=== PATIENT | male | born 1985 | race Caucasian/White ===

== ENCOUNTER 2017-12-11 08:08 | Emergency (ER) | payer SELFPAY ==
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
== END 2017-12-11 09:23 | disposition home or self-care (01) ==
LOC: ERS 08:08
DX: S50.01XA Contusion of right elbow, initial encounter (principal); F17.290 Nicotine dependence, other tobacco product, uncomplicated; W22.8XXA Striking against or struck by other objects, initial encounter

== ENCOUNTER 2018-01-15 01:44 | Emergency (ER) | payer SELFPAY ==
[2018-01-15 03:09] LABS: #Basophils 0.1 thou/uL (0.0-0.2); #Eosinphils 0.4 thou/uL (0.0-0.7); #Lymphocytes 2.1 thou/uL (1.20-3.40); #Monocytes 1.1 thou/uL (0.11-0.59); #Neutrophils 10.1 thou/uL (1.40-6.50); %Basophils 0.4 % (0.0-1.0); %Eosinophils 2.9 % (0.0-10.0); %Lymphocytes 15.5 % (21.0-51.0); %Monocytes 8.2 % (0.0-10.0); %Neutrophils 73.1 % (42.0-75.0); Hemoglobin 14.7 g/dL (14.0-18.0); Mean Corpuscular HGB CONC 34.2 g/dL (32.0-36.0); Mean Corpuscular Hemoglobin 31.1 pg (27.0-31.0); Mean Platelet Volume 7.6 fL (7.4-10.4); Platelet Count 356 thou/uL (130-400); RBC Distribution Width 12.2 % (11.5-14.5); Red Blood Cell (RBC) Count 4.71 mill/uL (4.70-6.10); White Blood Cell (WBC) Count 13.8 thou/uL (4.8-10.8)
[2018-01-15 03:23] LABS: ALT (SGPT) 18 U/L (8-55); AST (SGOT) 21 U/L (5-34); Albumin 4.9 g/dL (3.5-5.0); Alcohol 101 mg/dL (Less than 10); Alkaline Phosphatase 59 U/L (40-150); Anion Gap 14 mmol/L (10-20); BUN (Urea Nitrogen) 20 mg/dL (8.9-20.6); Bilirubin, Total 0.2 mg/dL (0.2-1.2); Calc. Creatinine Clearance 0 mL/min (70-130); Calcium 9.6 mg/dL (7.8-10.44); Carbon Dioxide 24 mmol/L (22-29); Chloride 104 mmol/L (98-107); Estimated GFR-MDRD 81; Globulin 3.1 g/dL (2.4-3.5); Glucose 126 mg/dL (70-105); Potassium 3.7 mmol/L (3.5-5.1); Sodium 138 mmol/L (136-145)
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
[2018-01-15] MEDS ORDERED: ISOVUE-370 76%-LOCM 1 ML ONE (14:35)
== END 2018-01-15 03:32 | disposition home or self-care (01) ==
LOC: ERS 01:44
DX: S40.021A Contusion of right upper arm, initial encounter; F10.129 Alcohol abuse with intoxication, unspecified; F17.290 Nicotine dependence, other tobacco product, uncomplicated; V86.69XA Passenger of other special all-terrain or other off-road motor vehicle injured in nontraffic accident, initial encounter; S40.211A Abrasion of right shoulder, initial encounter; S01.01XA Laceration without foreign body of scalp, initial encounter
CPT/HCPCS: 12001; 70450; 71045; 71260; 72125; 72170; 74177; 80053; 80307; 85025

== ENCOUNTER 2018-06-11 12:39 | Emergency (ER) | payer SELFPAY ==
[~2018-06-11 12:39] MED LIST: ISOVUE-370 76%-LOCM 1 ML ONE
[2018-06-11 12:55] LABS: #Basophils 0.1 thou/uL (0.0-0.2); #Eosinphils 0.4 thou/uL (0.0-0.7); #Lymphocytes 3.7 thou/uL (1.20-3.40); #Monocytes 0.7 thou/uL (0.11-0.59); #Neutrophils 4.7 thou/uL (1.40-6.50); %Basophils 0.7 % (0.0-1.0); %Eosinophils 4.6 % (0.0-10.0); %Lymphocytes 38.3 % (21.0-51.0); %Monocytes 7.2 % (0.0-10.0); %Neutrophils 49.2 % (42.0-75.0); Hemoglobin 14.5 g/dL (14.0-18.0); Mean Corpuscular HGB CONC 34.1 g/dL (32.0-36.0); Mean Corpuscular Volume 90.7 fL (78.0-98.0); Mean Platelet Volume 6.6 fL (7.4-10.4); Platelet Count 341 thou/uL (130-400); RBC Distribution Width 11.9 % (11.5-14.5); Red Blood Cell (RBC) Count 4.67 mill/uL (4.70-6.10); White Blood Cell (WBC) Count 9.6 thou/uL (4.8-10.8)
[2018-06-11 13:02] LABS: PTT 25.7 SEC (22.9-36.1); Prothrombin Time 13.5 SEC (12.0-14.7)
[2018-06-11 13:09] LABS: ALT (SGPT) 24 U/L (8-55); AST (SGOT) 23 U/L (5-34); Albumin 4.9 g/dL (3.5-5.0); Alkaline Phosphatase 61 U/L (40-150); Anion Gap 17 mmol/L (10-20); BUN (Urea Nitrogen) 13 mg/dL (8.9-20.6); Bilirubin, Total 0.4 mg/dL (0.2-1.2); Calc. Creatinine Clearance 0 mL/min (70-130); Calcium 10.4 mg/dL (7.8-10.44); Carbon Dioxide 24 mmol/L (22-29); Chloride 103 mmol/L (98-107); Estimated GFR-MDRD Greater than 90; Globulin 3.1 g/dL (2.4-3.5); Glucose 134 mg/dL (70-105); Potassium 3.8 mmol/L (3.5-5.1); Sodium 140 mmol/L (136-145)
[2018-06-11 13:14] LABS: Acetaminophen Less than 6.0 mcg/mL (10.0-30.0); Alcohol 314 mg/dL (Less than 10); Salicylate Less than 8.0 mg/dL (15.0-30.0)
[2018-06-11 13:37] LABS: Bilirubin Negative (Negative); Blood, Urine Negative (Negative); Clarity CLEAR (Clear); Glucose, Urine (Dipstick) Negative (Negative); Leukocyte Negative (Negative); Nitrite Negative (Negative); Protein, Urine (Dipstick) Trace mg/dL (Neg-Trace); Specific Gravity, Urine 1.023 (1.002-1.036); Urobilinogen 0.2 mg/dL (0.2-1.0)
[2018-06-11 13:47] LABS: Amphetamine Not Detected (NotDetected); Barbiturates Screen Not Detected (NotDetected); Benzodiazepine Screen Not Detected (NotDetected); Cocaine Metabolite Screen Detected (NotDetected); Medtox Control Line Valid? VALID (VALID); Medtox Reader # READER 1; Methadone Not Detected (NotDetected); Methamphetamine Not Detected (NotDetected); Opiate Screen Not Detected (NotDetected); Oxycodone Screen Not Detected (NotDetected); Phencyclidine (PCP) Not Detected (NotDetected); THC/Cannabinoid Screen Not Detected (NotDetected); Tricyclic Screen Not Detected (NotDetected)
[2018-06-11] MEDS ORDERED: Multivitamins, Adult 10 ML, Thiamine HCl 100 MG, Folic Acid 1 MG in Dextrose 5 %-0.45 %... IV SCH (14:00)
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
== END 2018-06-11 18:11 | disposition home or self-care (01) ==
LOC: ERS 12:39
DX: S41.011A Laceration without foreign body of right shoulder, initial encounter (principal); S41.112A Laceration without foreign body of left upper arm, initial encounter; S21.112A Laceration without foreign body of left front wall of thorax without penetration into thoracic cavity, initial encounter; S00.03XA Contusion of scalp, initial encounter; F17.290 Nicotine dependence, other tobacco product, uncomplicated; Y04.0XXA Assault by unarmed brawl or fight, initial encounter
CPT/HCPCS: 51701; 70450; 71045; 71260; 72125; 74177; 80053; 80306; 80307; 81003; 82150; 85025; 85610; 85730; 86850; 86900; 86901; 90471; 93005; 96365; 96366; 96374; G0390; J3411; J7042

== ENCOUNTER 2021-10-17 18:09 | Observation (INO) | payer SELFPAY ==
[~2021-10-17 18:09] MED LIST changes: -ISOVUE-370 76%-LOCM 1 ML ONE; +Iopamidol 370 76% 100 ML VIAL ONE
[2021-10-17 18:27] LABS: #Basophils 0.1 thou/uL (0.0-0.2); #Eosinphils 0.3 thou/uL (0.0-0.7); #Lymphocytes 2.4 thou/uL (1.20-3.40); #Monocytes 0.7 thou/uL (0.11-0.59); #Neutrophils 6.2 thou/uL (1.40-6.50); %Basophils 0.8 % (0.0-1.0); %Eosinophils 3.1 % (0.0-10.0); %Lymphocytes 24.8 % (21.0-51.0); %Monocytes 7.2 % (0.0-10.0); %Neutrophils 64.2 % (42.0-75.0); Hemoglobin 14.8 g/dL (14.0-18.0); Mean Corpuscular HGB CONC 34.5 g/dL (32.0-36.0); Mean Corpuscular Hemoglobin 31.7 pg (27.0-31.0); Mean Corpuscular Volume 91.9 fL (78.0-98.0); Mean Platelet Volume 6.7 fL (7.4-10.4); Platelet Count 325 thou/uL (130-400); RBC Distribution Width 11.8 % (11.5-14.5); Red Blood Cell (RBC) Count 4.66 mill/uL (4.70-6.10); White Blood Cell (WBC) Count 9.7 thou/uL (4.8-10.8)
[2021-10-17 18:37] LABS: PTT 25.7 sec (22.9-36.1); Prothrombin Time 13.3 sec (12.0-14.7)
[2021-10-17] MEDS ORDERED: hydrALAZINE 20 MG/ML VIAL SLOW IVP PRN (18:45)
[2021-10-17] MEDS ORDERED: Ondansetron PF 4 MG/2 ML Vial IVP PRN (18:45)
[2021-10-17 18:48] LABS: ALT (SGPT) 29 U/L (8-55); AST (SGOT) 24 U/L (5-34); Albumin 4.5 g/dL (3.5-5.0); Alcohol 207 mg/dL (Less than 10); Alkaline Phosphatase 60 U/L (40-110); Anion Gap 15 mmol/L (10-20); BUN (Urea Nitrogen) 15 mg/dL (8.9-20.6); Bilirubin, Total 0.2 mg/dL (0.2-1.2); Calc. Creatinine Clearance 0 mL/min (70-130); Calcium 9.7 mg/dL (7.8-10.44); Carbon Dioxide 24 mmol/L (22-29); Chloride 104 mmol/L (98-107); Globulin 3.4 g/dL (2.4-3.5); Glucose 140 mg/dL (70-105); Potassium 3.7 mmol/L (3.5-5.1); Protein, Total 7.9 g/dL (6.0-8.3); Sodium 139 mmol/L (136-145)
[2021-10-17] MEDS ORDERED: traMADol HCl 50 MG TAB PO PRN (18:48)
[2021-10-17] MEDS ORDERED: Xylocaine 1% w/ Epi 1:100K 10 ML VIAL ONE (18:57)
[2021-10-17] MEDS ORDERED: Acetaminophen 500 MG TAB PO SCH (19:00)
[2021-10-17] MEDS ORDERED: Lactated Ringer's 1,000 ML IV SCH (19:15)
[2021-10-17 19:18] LABS: Lactic Acid 2.3 mmol/L (0.5-2.2)
[2021-10-17] MEDS ORDERED: Morphine 4 MG/ML VIAL SLOW IVP PRN (19:21)
[2021-10-17] MEDS ORDERED: Morphine 4 MG/ML VIAL ONE (19:27)
[2021-10-17] MEDS ORDERED: Ketorolac Tromethamine 30 MG/ML VIAL ONE (19:27)
[2021-10-17] MEDS ORDERED: Famotidine/PF 20 mg/2ml Vial SLOW IVP SCH (21:00)
[2021-10-17] MEDS ORDERED: Senokot S 8.6-50 MG TAB PO SCH (21:00)
[2021-10-17 21:12] LABS: #Basophils 0.1 thou/uL (0.0-0.2); #Eosinphils 0.3 thou/uL (0.0-0.7); #Monocytes 0.7 thou/uL (0.11-0.59); #Neutrophils 5.5 thou/uL (1.40-6.50); %Basophils 0.9 % (0.0-1.0); %Eosinophils 2.9 % (0.0-10.0); %Lymphocytes 23.1 % (21.0-51.0); %Monocytes 8.2 % (0.0-10.0); %Neutrophils 64.8 % (42.0-75.0); Hemoglobin 13.7 g/dL (14.0-18.0); Mean Corpuscular HGB CONC 34.5 g/dL (32.0-36.0); Mean Corpuscular Hemoglobin 32.3 pg (27.0-31.0); Mean Corpuscular Volume 93.4 fL (78.0-98.0); Mean Platelet Volume 7.1 fL (7.4-10.4); Platelet Count 286 thou/uL (130-400); RBC Distribution Width 11.9 % (11.5-14.5); Red Blood Cell (RBC) Count 4.26 mill/uL (4.70-6.10); White Blood Cell (WBC) Count 8.5 thou/uL (4.8-10.8)
[2021-10-17 21:39] VITALS: BP 135/88; TEMP 98.4
[2021-10-17] MEDS ORDERED: traMADol HCl 50 MG TAB PO SCH (23:59)
[2021-10-18] MEDS ORDERED: Polyethylene Glycol 3350 17 GM Packet PO SCH (09:00)
[2021-10-18] MEDS ORDERED: Escitalopram Oxalate 10 mg Tablet PO SCH (09:00)
== END 2021-10-17 22:30 | disposition home or self-care (01) ==
LOC: ERS 18:09 → SURG A 18:45
PROVIDERS: ADMIT Emergency Medicine; ATTEND Emergency Medicine
DX: S21.111A Laceration without foreign body of right front wall of thorax without penetration into thoracic cavity, initial encounter (principal); S27.1XXA Traumatic hemothorax, initial encounter; S01.332A Puncture wound without foreign body of left ear, initial encounter; G89.11 Acute pain due to trauma; F10.129 Alcohol abuse with intoxication, unspecified; F17.290 Nicotine dependence, other tobacco product, uncomplicated; F12.11 Cannabis abuse, in remission; Z53.29 Procedure and treatment not carried out because of patient's decision for other reasons; Z89.012 Acquired absence of left thumb; W26.9XXA Contact with unspecified sharp object(s), initial encounter; Y90.7 Blood alcohol level of 200-239 mg/100 ml
CPT/HCPCS: 36415; 71045; 71260; 80053; 80307; 83605; 85610; 85730; G0378; J1885; J2270; Q9967

== ENCOUNTER 2021-10-18 15:10 | Inpatient (IN) | payer SELFPAY ==
[2021-10-18] MEDS ORDERED: Ketorolac Tromethamine 30 MG/ML VIAL ONE (15:42)
[2021-10-18 16:32] LABS: Hemoglobin 12.3 g/dL (14.0-18.0); Mean Corpuscular HGB CONC 34.1 g/dL (32.0-36.0); Mean Corpuscular Volume 93.8 fL (78.0-98.0); Mean Platelet Volume 7.2 fL (7.4-10.4); Platelet Count 277 thou/uL (130-400); RBC Distribution Width 11.9 % (11.5-14.5); Red Blood Cell (RBC) Count 3.85 mill/uL (4.70-6.10); White Blood Cell (WBC) Count 7.8 thou/uL (4.8-10.8)
[2021-10-18] MEDS ORDERED: Morphine 4 MG/ML VIAL ONE (16:40)
[2021-10-18 16:42] LABS: Alcohol Less than 10 mg/dL (Less than 10); Salicylate Less than 8.0 mg/dL (15.0-30.0)
[2021-10-18 16:44] LABS: ALT (SGPT) 25 U/L (8-55); AST (SGOT) 22 U/L (5-34); Alkaline Phosphatase 55 U/L (40-110); Anion Gap 11 mmol/L (10-20); BUN (Urea Nitrogen) 19 mg/dL (8.9-20.6); Bilirubin, Total 0.3 mg/dL (0.2-1.2); Calc. Creatinine Clearance 0 mL/min (70-130); Calcium 9.6 mg/dL (7.8-10.44); Carbon Dioxide 26 mmol/L (22-29); Chloride 104 mmol/L (98-107); Globulin 2.5 g/dL (2.4-3.5); Glucose 116 mg/dL (70-105); Potassium 3.9 mmol/L (3.5-5.1); Protein, Total 6.5 g/dL (6.0-8.3); Sodium 137 mmol/L (136-145)
[2021-10-18] MEDS ORDERED: Fentanyl 100 MCG/2 ML VIAL ONE (16:56)
[2021-10-18] MEDS ORDERED: Lidocaine 1% (PF) 30 ML VIAL ONE (16:56)
[2021-10-18 16:59] LABS: Band 5 % (5-11); Eosinophils 4 % (0-10); Lymphocytes 12 % (21-51); MDiff Complete? YES; Monocytes 14 % (0-10); Neutrophil 65 % (42-75); Platelet Morphology Comment Appears Adequate; RBC Morphology Normal
[2021-10-18] MEDS ORDERED: CEFAZOLIN 1 GM VIAL ONE (17:27)
[2021-10-18 17:30] LABS: SARS-CoV-2 NAA Rapid Test DETECTED (NotDetected)
[2021-10-18] MEDS ORDERED: Ondansetron PF 4 MG/2 ML Vial ONE ×2 (17:42→18:57)
[2021-10-18] MEDS ORDERED: HYDROcodone/Acetaminophen 5/325 mg Tablet ONE ×2 (18:24)
[2021-10-18 19:58] VITALS: BMI 26.9
[2021-10-18] MEDS ORDERED: Ondansetron PF 4 MG/2 ML Vial IVP PRN (20:09)
[2021-10-18] MEDS ORDERED: hydrALAZINE 20 MG/ML VIAL SLOW IVP PRN (20:09)
[2021-10-18] MEDS ORDERED: Sodium Chloride 0.9% 1,000 ML IV SCH (20:09)
[2021-10-18] MEDS ORDERED: traMADol HCl 50 MG TAB PO PRN (20:09)
[2021-10-18] MEDS ORDERED: Cyclobenzaprine 10 MG TAB PO PRN (20:09)
[2021-10-18] MEDS ORDERED: Dextrose 50% Abboject 50 ML SYRINGE SLOW IVP PRN (20:09)
[2021-10-18] MEDS ORDERED: Ondansetron ODT 4 MG TAB PO PRN (20:09)
[2021-10-18] MEDS ORDERED: Dextrose 5% in Water 1,000 ML IV PRN (20:09)
[2021-10-18] MEDS ORDERED: Ibuprofen 800 MG TAB PO PRN (20:09)
[2021-10-18] MEDS: Acetaminophen 500 MG TAB PO SCH (20:36)
[2021-10-18] MEDS: Famotidine 20 MG TAB PO SCH (20:38)
[2021-10-19] MEDS: Albuterol 200 PUFF (6.7GM INHALER) INH SCH ×4 (00:26→21:01)
[2021-10-19] MEDS: Acetaminophen 500 MG TAB PO SCH ×4 (03:40→21:00)
[2021-10-19] MEDS: traMADol HCl 50 MG TAB PO PRN (05:15)
[2021-10-19 06:53] LABS: #Lymphocytes 1.5 thou/uL (1.20-3.40); #Monocytes 1.3 thou/uL (0.11-0.59); #Neutrophils 6.8 thou/uL (1.40-6.50); %Basophils 0.2 % (0.0-1.0); %Eosinophils 0.3 % (0.0-10.0); %Lymphocytes 15.3 % (21.0-51.0); %Monocytes 13.4 % (0.0-10.0); %Neutrophils 70.8 % (42.0-75.0); Hemoglobin 9.3 g/dL (14.0-18.0); Mean Corpuscular HGB CONC 33.8 g/dL (32.0-36.0); Mean Corpuscular Hemoglobin 31.8 pg (27.0-31.0); Mean Corpuscular Volume 94.1 fL (78.0-98.0); Mean Platelet Volume 7.3 fL (7.4-10.4); Platelet Count 241 thou/uL (130-400); RBC Distribution Width 11.8 % (11.5-14.5); Red Blood Cell (RBC) Count 2.91 mill/uL (4.70-6.10); White Blood Cell (WBC) Count 9.6 thou/uL (4.8-10.8)
[2021-10-19 07:16] LABS: Anion Gap 12 mmol/L (10-20); BUN (Urea Nitrogen) 22 mg/dL (8.9-20.6); Calc. Creatinine Clearance 139 mL/min (70-130); Calcium 8.4 mg/dL (7.8-10.44); Carbon Dioxide 24 mmol/L (22-29); Chloride 102 mmol/L (98-107); Glucose 144 mg/dL (70-105); Potassium 3.8 mmol/L (3.5-5.1); Sodium 134 mmol/L (136-145)
[2021-10-19] MEDS: Famotidine 20 MG TAB PO SCH ×2 (09:53→21:01)
[2021-10-19] MEDS ORDERED: Fentanyl 100 MCG/2 ML VIAL ONE ×2 (11:33→14:13)
[2021-10-19] MEDS ORDERED: Dexmedetomidine 200 MCG/2 ML VIAL ONE (11:34)
[2021-10-19] MEDS ORDERED: Ketamine 50 MG/ML (10ML VIAL) ONE (11:34)
[2021-10-19] MEDS ORDERED: Lidocaine 1% PF 5 ML VIAL ONE (12:14)
[2021-10-19] MEDS ORDERED: Rocuronium Bromide 10 MG/ML (10ML VIAL) ONE (12:14)
[2021-10-19] MEDS ORDERED: PROPOFOL 200 MG/20 ML VIAL ONE (12:14)
[2021-10-19] MEDS ORDERED: Glycopyrrolate 0.2 MG/ML 5 ML SYRINGE ONE (12:14)
[2021-10-19] MEDS ORDERED: Ketorolac Tromethamine 30 MG/ML VIAL ONE (12:14)
[2021-10-19] MEDS ORDERED: Ondansetron PF 4 MG/2 ML Vial ONE (12:14)
[2021-10-19] MEDS ORDERED: Phenylephrine 10 MG/ML VIAL ONE (12:14)
[2021-10-19] MEDS ORDERED: SUGAMMADEX SODIUM 200 MG/2 ML VIAL ONE (13:34)
[2021-10-19] MEDS ORDERED: Promethazine HCl 25 MG/ML VIAL IM PRN (15:29)
[2021-10-19] MEDS: Ketorolac Tromethamine 30 MG/ML VIAL IVP SCH ×2 (16:10→20:59)
[2021-10-19] MEDS: Fentanyl 100 MCG/2 ML VIAL SLOW IVP PRN ×2 (16:20→19:03)
[2021-10-20] MEDS: traMADol HCl 50 MG TAB PO PRN ×2 (03:15→09:56)
[2021-10-20] MEDS: Acetaminophen 500 MG TAB PO SCH ×3 (03:16→15:38)
[2021-10-20] MEDS: Ketorolac Tromethamine 30 MG/ML VIAL IVP SCH ×2 (05:42→15:38)
[2021-10-20] MEDS: Famotidine 20 MG TAB PO SCH (09:55)
[2021-10-20] MEDS: Albuterol 200 PUFF (6.7GM INHALER) INH SCH ×2 (10:03→15:38)
[2021-10-20 12:07] VITALS: BP 112/58; TEMP 98.3
== END 2021-10-20 15:48 | disposition home or self-care (01) | DRG 166 ==
LOC: ERS 15:10 → OBSVTOIN 18:10 → EEVIPCON 18:10 → SURG A 18:10 → ERHOLD 18:58 → SURG A 20:05
PROVIDERS: ADMIT Surgery; ATTEND Surgery
PROC: 8E0ZXY6 Isolation (ICD-10-PCS; principal; 2021-10-18)
PROC: 0W9930Z Drainage of Right Pleural Cavity with Drainage Device, Percutaneous Approach (ICD-10-PCS; 2021-10-18)
PROC: 0B9 Respiratory System, Drainage (ICD-10-PCS; 2021-10-19)
DX: S27.1XXA Traumatic hemothorax, initial encounter (principal); U07.1 COVID-19; W45.8XXA Other foreign body or object entering through skin, initial encounter; F12.10 Cannabis abuse, uncomplicated
CPT/HCPCS: 36415; 71045; 71046; 80048; 80053; 80307; 85025; 86850; 86900; 86901; J0690; J1885; J2001; J2270; J2370; J2405; J2704; J3010; J7050; U0002

== ENCOUNTER 2021-10-22 22:41 | Emergency (ER) | payer SELFPAY ==
[2021-10-23] MEDS ORDERED: HYDROcodone/Acetaminophen 5/325 mg Tablet ONE (04:05)
== END 2021-10-23 00:05 | disposition home or self-care (01) ==
LOC: ERS 22:41
DX: Z48.89 Encounter for other specified surgical aftercare (principal)
CPT/HCPCS: 99282

== ENCOUNTER 2021-10-23 02:55 | Emergency (ER) | payer SELFPAY | END 2021-10-23 06:29 | disposition home or self-care (01) | LOC: ERS 02:55 | DX: J94.2 Hemothorax (principal) | CPT/HCPCS: 71250 ==

== ENCOUNTER 2024-10-05 03:30 | Emergency (ER) | payer SELFPAY ==
[2024-10-05 04:04] LABS: #Basophils 0.04 10x3/uL (0.0-0.2); %Basophils 0.5 % (0.0-1.0); %Eosinophils 1.7 % (0.0-10.0); %Lymphocytes 54.1 % (21.0-51.0); %Monocytes 5.2 % (0.0-10.0); %Neutrophils 37.8 % (42.0-75.0); Hematocrit 44.1 % (42.0-52.0); Mean Corpuscular HGB CONC 36.3 g/dL (32.0-36.0); Mean Corpuscular Hemoglobin 31.6 pg (27.0-31.0); Mean Platelet Volume 9.4 fL (7.4-10.4); Platelet Count 354 10x3/uL (130-400); RBC Distribution Width 13.1 % (11.5-14.5); Red Blood Cell (RBC) Count 5.07 mill/uL (4.70-6.10)
[2024-10-05 04:21] LABS: ALT (SGPT) 88 U/L (8-55); AST (SGOT) 117 U/L (5-34); Alkaline Phosphatase 65 U/L (40-110); Anion Gap 17 mmol/L (10-20); BUN (Urea Nitrogen) 13 mg/dL (8.9-20.6); Bilirubin, Total 0.2 mg/dL (0.2-1.2); Calc. Creatinine Clearance 0 mL/min (70-130); Calcium 8.7 mg/dL (7.8-10.44); Carbon Dioxide 20 mmol/L (22-29); Chloride 107 mmol/L (98-107); Estimated GFR 102; Globulin 3.5 g/dL (2.4-3.5); Glucose 135 mg/dL (70-105); Potassium 3.6 mmol/L (3.5-5.1); Protein, Total 7.5 g/dL (6.0-8.3); Sodium 140 mmol/L (136-145)
[2024-10-05 04:26] LABS: Lipase 33 U/L (8-78)
[2024-10-05 04:29] LABS: Acetaminophen Less than 10 mcg/mL (Less than 10); Alcohol 292.5 mg/dL (Less than 10); Salicylate Less than 8.0 mg/dL (Less than 8.0)
[2024-10-05] MEDS ORDERED: Bacitracin 1 PK ONE (04:47)
[2024-10-05] MEDS ORDERED: Sodium Chloride 0.9% 100 ML ONE (04:47)
[2024-10-05] MEDS ORDERED: CEFAZOLIN 2 GM VIAL ONE (04:47)
[2024-10-05] MEDS ORDERED: Boostrix 0.5 ML (Tdap) VIAL (>/=7 yrs of age) ONE (04:48)
[2024-10-05] MEDS ORDERED: Morphine 4 MG/ML VIAL ONE (05:44)
[2024-10-05] MEDS ORDERED: Ondansetron PF 4 MG/2 ML Vial ONE (05:53)
[2024-10-05] MEDS ORDERED: Ketorolac Tromethamine 30 MG (1 mL) VIAL ONE (06:37)
[2024-10-05] MEDS ORDERED: Iopamidol-370 76% 500 ML MDV (1 ML CHARGE) ONE (14:44)
== END 2024-10-05 09:13 ==
LOC: ERS 03:30
DX: S22.42XA Multiple fractures of ribs, left side, initial encounter for closed fracture (principal); S30.0XXA Contusion of lower back and pelvis, initial encounter; S50.312A Abrasion of left elbow, initial encounter; S50.311A Abrasion of right elbow, initial encounter; S60.512A Abrasion of left hand, initial encounter; S60.511A Abrasion of right hand, initial encounter; S80.212A Abrasion, left knee, initial encounter; S80.211A Abrasion, right knee, initial encounter; Z55.6 Problems related to health literacy; J94.2 Hemothorax; F10.129 Alcohol abuse with intoxication, unspecified; Z23 Encounter for immunization; V89.9XXA Person injured in unspecified vehicle accident, initial encounter
CPT/HCPCS: 70450; 70486; 71260; 72125; 74177; 80053; 80307; 83690; 85025; 90471; 90715; 93005; 96374; 96375; G0390; J1885; J2272; J2405; Q9967